=== PATIENT | female | born 1955 | race Caucasian/White ===

== ENCOUNTER → 2018-01-21 | Outpatient (CLI) | payer OTHER | LOC: M.RAD 14:49 | DX: Z12.31 Encounter for screening mammogram for malignant neoplasm of breast (principal); M85.89 Other specified disorders of bone density and structure, multiple sites; M17.11 Unilateral primary osteoarthritis, right knee; M81.0 Age-related osteoporosis without current pathological fracture; Z78.0 Asymptomatic menopausal state ==

== ENCOUNTER → 2018-01-23 | Outpatient (CLI) | payer OTHER | LOC: EDUNIT# 01-20 13:17 → M.ULTRA 09:26 | DX: K76.0 Fatty (change of) liver, not elsewhere classified (principal) ==

== ENCOUNTER 2018-09-15 16:31 | Emergency (ER) | payer OTHER ==
[~2018-09-15] VITALS: Ht 160 cm; Wt 83.5 kg
[2018-09-15] MEDS ORDERED: ASPIR 8181 MG PO (16:36)
[2018-09-15] MEDS ORDERED: LIPITOR 20 MG T20 M1 PO (16:46)
[2018-09-15] MEDS ORDERED: COZAAR 25 MG TA25 M1 PO (16:46)
[2018-09-15] MEDS ORDERED: FLUOXETINE HCL40 MG PO (16:46)
[2018-09-15] MEDS ORDERED: SINGULAIR 10 MG10 M1 PO (16:47)
[2018-09-15] MEDS ORDERED: COLESTID1 GM PO (16:47)
[2018-09-15] MEDS ORDERED: OMEPRAZOLE 20 M20 M1 PO (16:47)
[2018-09-15] MEDS ORDERED: BENTYL 20 MG TA20 M1 PO (16:47)
[2018-09-15] MEDS ORDERED: VITAMIN E400 UNIT PO (16:47)
[2018-09-15] MEDS ORDERED: FISH OIL 1,001000 M2 PO (16:48)
[2018-09-15] MEDS ORDERED: DOXYCYCLINE 10100 MG PO (16:48)
[2018-09-15] MEDS ORDERED: PRESERVISION A1 EAC2 PO (16:48)
[2018-09-15 16:52] LABS: ABSOLUTE BASOPHILS 0.1 thou/uL (0.0-0.2); ABSOLUTE EOSINOPHILS 0.2 thou/uL (0.0-0.7); ABSOLUTE LYMPHOCYTES 3.2 thou/uL (0.8-5.3); ABSOLUTE MONOCYTES 0.6 thou/uL (0.0-1.2); ABSOLUTE NEUTROPHILS 5.3 thou/uL (1.6-8.1); BASOPHILS 1.2 %; EOSINOPHILS 2.1 %; HEMATOCRIT 43.2 % (37.0-47.0); HEMOGLOBIN 14.9 gm/dL (12.0-15.0); LYMPHOCYTES 34.1 %; MCH 30.6 pg (26.0-34.0); MCHC 34.5 g/dL (28.0-37.0); MCV 88.8 fL (80.0-100.0); MONOCYTES 6.7 %; MPV 6.3 fl. (7.2-11.1); NUCLEATED RBCS 0 /100WBC; PLATELET COUNT* 326 thou/uL (150-400); POLYS 55.9 %; RBC 4.87 mil/uL (4.20-5.00); RDW-CV 14.4 % (10.5-14.5); WBC 9.4 thou/uL (4.0-11.0)
[2018-09-15 17:02] LABS: APTT 27.6 Seconds (25.0-31.3); PROTIME 10.2 Seconds (9.20-11.50)
[2018-09-15 17:15] LABS: ALBUMIN 3.6 g/dL (3.4-5.0); ALKALINE PHOSPHATASE 100 U/L (46-116); ANION GAP 8 mmol/L (7-16); BUN 12 mg/dL (7-18); CALCIUM 9.1 mg/dL (8.5-10.1); CHLORIDE 106 mmol/L (98-107); CK-MB MASS 0.7 ng/mL (<0.5-3.6); CO2 27 mmol/L (21-32); CREATININE 0.8 mg/dL (0.6-1.3); GLUCOSE 121 mg/dL (70-99); LIPASE 65 U/L (73-393); MAGNESIUM 2.3 mg/dL (1.8-2.4); NT-PRO BRAIN NAT PEPTIDE 44 pg/mL (<300); POTASSIUM 3.7 mmol/L (3.5-5.1); SGOT 50 U/L (15-37); SGPT 56 U/L (30-65); SODIUM 141 mmol/L (136-145); TOTAL BILIRUBIN 0.2 mg/dL (<0.1-1.0); TOTAL PROTEIN 7.5 g/dL (6.4-8.2); TROPONIN-I LEVEL <0.06 ng/mL (<0.06)
[2018-09-15] MEDS ORDERED: XANAX 1 MG TABLE1 MG PO (17:46)
[2018-09-15 17:49] VITALS: BP 141/69
--- NOTE | 2018-09-16 14:33 | EKG ---
[place] [address] ELECTROCARDIOGRAM REPORT Name: SUMAN SERRANO Room: [facility]#: [id number] Admission: 09/15/18 Attend Phys: Discharge: 09/15/18 Date of : 51 Report #: [id number] THIS REPORT FOR: //name// [facility] ED Test Date: 2018-09-15 Test Time: 16:35:01 Pat Name: SUMAN SERRANO Department: Room: Gender: F [employer]: : 1955 Requested By: Darío Salter Order Number: [id number] MD: Immanuel Reagan Measurements Intervals [place] Rate: 70 P: 73 LA: 163 QRS: -43 QRSD: 102 T: 57 QT: 406 QTc: 439 Interpretive Statements Sinus rhythm Left axis deviation No previous ECG available for comparison Electronically Signed On 09-16-2018 14:33:22 CDT by Immanuel Reagan [email or web address] <ELECTRONICALLY SIGNED> By: Immanuel Reagan MD, [facility] 09/16/18 1433 1635 1635 Immanuel Reagan MD, FACC /EPI
== END 2018-09-15 17:49 | disposition home or self-care (01) ==
LOC: M.ERS 16:31
PROVIDERS: Family Medicine
DX: R07.89 Other chest pain (principal); F17.210 Nicotine dependence, cigarettes, uncomplicated; Z88.5 Allergy status to narcotic agent